=== PATIENT | female | born 1940 | race Caucasian/White ===

== ENCOUNTER 2020-01-15 12:25 | Inpatient (IN) | payer MEDICARE, OTHER ==
[~2020-01-15] VITALS: Ht 154.9 cm; Wt 78.9 kg
[2020-01-15 13:21] LABS: BASOPHILS # (AUTO) 0.1 X10'3 (0-0.2); BASOPHILS % (AUTO) 0.9 % (0-1); EOSINOPHILS % (AUTO) 0.2 % (0-6); HEMATOCRIT 51.5 % (35.0-45.0); LYMPHOCYTES # (AUTO) 1.9 X10'3 (1.1-4.8); LYMPHOCYTES % (AUTO) 14.9 % (21-51); MEAN CORPUSCULAR HEMOGLOBIN 31.1 PG (27.0-31.0); MEAN CORPUSCULAR HGB CONC 34.9 g/dL (33.0-36.5); MEAN PLATELET VOLUME 7.3 FL (7.4-10.4); MONOCYTES # (AUTO) 0.7 X10'3 (0-0.9); MONOCYTES % (AUTO) 5.5 % (2-12); NEUTROPHILS # (AUTO) 10.2 X10'3 (1.8-7.7); NEUTROPHILS % (AUTO) 78.5 % (42-75); PLATELET COUNT 368 X10'3 (140-440); RED BLOOD COUNT 5.78 X10'6 (4.20-5.60); RED CELL DISTRIBUTION WIDTH 13.4 % (11.5-14.5)
[2020-01-15 13:27] LABS: ALANINE AMINOTRANSFERASE 17 U/L (12-78); ALBUMIN 3.6 G/DL (3.4-5.0); ALBUMIN/GLOBULIN RATIO 0.9 (1.1-1.5); ALKALINE PHOSPHATASE 65 IU/L (46-116); ANION GAP 7 (8-16); ASPARTATE AMINO TRANSFERASE 21 U/L (10-37); BILIRUBIN,TOTAL 1.1 MG/DL (0.1-1.0); BLOOD UREA NITROGEN 12 MG/DL (7-18); BUN/CREATININE RATIO 12.5 (6.6-38.0); CHLORIDE 92 MMOL/L (99-107); CREATININE 0.96 MG/DL (0.40-0.90); GLUCOSE 128 MG/DL (70-104); LIPASE 126 U/L (73-393); MAGNESIUM 1.3 MG/DL (1.5-2.4); POTASSIUM 3.4 MMOL/L (3.5-5.1); SODIUM 130 MMOL/L (135-145); TOTAL PROTEIN 7.7 G/DL (6.4-8.2); eGFR 56 ML/MIN
[2020-01-15] MEDS ORDERED: LISI-600 PO (13:34)
[2020-01-15] MEDS ORDERED: normal saline 1000ML IV soln IVB ONE (13:45)
[2020-01-15] MEDS ORDERED: morphine 4 MG/ML inj SYRINge IV ONE ×2 (14:25→18:30)
--- NOTE | 2020-01-15 14:58 | NUR ---
PT BP 180/[address] ADAN FOR PT TO TAKE HOME BP MEDICATION.
[2020-01-15 15:31] LABS: CLARITY,URINE SLIGHTLY CLOUDY (Clear); COLOR,URINE YELLOW (Yellow); GLUCOSE, URINE NEGATIVE (Neg); KETONES,URINE TRACE mg/dl (Neg); LEUKOCYTE ESTERASE ,URINE TRACE (Neg); NITRITES, URINE NEGATIVE (Neg); OCCULT BLOOD,URINE TRACE-INTACT (Neg); PROTEIN,URINE 100 mg/dl (Neg); UROBILINOGEN,URINE 0.2 E.U/dL (0.2-1.0)
[2020-01-15 15:45] LABS: UA COLLECTION TYPE VOIDED
[2020-01-15 15:46] LABS: BACTERIA,URINE 2+ /HPF (Neg); MUCUS STRANDS NONE SEEN /LPF (Neg); RBC,URINE 0-2 /HPF (0-2); RENAL CELLS, URINE FEW /HPF; SQUAMOUS EPITHELIAL CELL,UR MODERATE /LPF (FEW)
[2020-01-15] MEDS ORDERED: iohexol 350MG/ML 100ml bottle IV ONE (15:54)
--- NOTE | 2020-01-15 16:15 | NUR ---
PT TO CT
[2020-01-15] MEDS ORDERED: morphine 2 MG/ML inj. syringe IV PRN (17:25)
[2020-01-15] MEDS ORDERED: acetaminophen 325mg tablet PO PRN (17:25)
[2020-01-15] MEDS ORDERED: potassium Cl 20 mEq SR tablet PO PRN ×2 (17:25)
[2020-01-15] MEDS ORDERED: potassium CL 10mEq/100ml bag 100 ML IV PRN ×2 (17:25)
[2020-01-15] MEDS ORDERED: magnesium 4gm in 100ml NS 100 ML IV PRN (17:25)
[2020-01-15] MEDS ORDERED: magnesium Cl slow-release 64mg tablet PO PRN (17:25)
[2020-01-15] MEDS ORDERED: magnesium 2GM in 50ml NS 50 ML IV PRN (17:25)
[2020-01-15] MEDS ORDERED: mag hydrox/Alum hydrox/simeth 30ml oral suspension PO PRN (17:25)
[2020-01-15] MEDS ORDERED: ondansetron/PF 4mg/2ml inj IV ONE (17:40)
[2020-01-15] MEDS: K and/or MAG REPLACEMENT MC SCH (17:54)
[2020-01-15] MEDS ORDERED: proCHLORperazine 10 MG/2 ml inj IV ONE (18:30)
[2020-01-15] MEDS ORDERED: nitroGLYCERIN 0.4mg SUBLingual tab SL ONE (19:48)
[2020-01-15] MEDS ORDERED: morphine 10mg/ml inj. IV PRN (19:55)
[2020-01-15] MEDS: docusate sod 100mg capsule PO SCH (20:00)
[2020-01-15] MEDS: normal saline 1000ml 1,000 ML IV SCH (20:04)
[2020-01-15] MEDS ORDERED: LISI1TAB28 PO (20:19)
[2020-01-15] MEDS: heparin, porcine 5000 units/ml vial SQ SCH (20:23)
[2020-01-15] MEDS ORDERED: nitroGLYCERIN 0.2mg/hour patch TD ONE (21:40)
[2020-01-15] MEDS: CefTRIAXone/D5W-Rocephin 1gm 50 ML IV SCH (23:19)
[2020-01-15] MEDS: pantoprazole 40 MG vial IV SCH (23:20)
[2020-01-16] VITALS: BP 166/83
[2020-01-16 05:34] VITALS: BP 181/77
[2020-01-16] MEDS: normal saline 1000ml 1,000 ML IV SCH ×3 (05:49→19:40)
[2020-01-16 05:53] LABS: BASOPHILS % (AUTO) 0.3 % (0-1); EOSINOPHILS # (AUTO) 0.1 X10'3 (0-0.9); EOSINOPHILS % (AUTO) 1.1 % (0-6); HEMATOCRIT 45.7 % (35.0-45.0); HEMOGLOBIN 15.8 g/dl (12.0-16.0); LYMPHOCYTES # (AUTO) 2.3 X10'3 (1.1-4.8); LYMPHOCYTES % (AUTO) 20.4 % (21-51); MEAN CORPUSCULAR HEMOGLOBIN 31.2 PG (27.0-31.0); MEAN CORPUSCULAR HGB CONC 34.5 g/dL (33.0-36.5); MEAN CORPUSCULAR VOLUME 90.3 FL (78-98); MEAN PLATELET VOLUME 7.2 FL (7.4-10.4); MONOCYTES # (AUTO) 0.9 X10'3 (0-0.9); NEUTROPHILS # (AUTO) 7.8 X10'3 (1.8-7.7); NEUTROPHILS % (AUTO) 70.2 % (42-75); PLATELET COUNT 287 X10'3 (140-440); RED BLOOD COUNT 5.05 X10'6 (4.20-5.60); RED CELL DISTRIBUTION WIDTH 13.5 % (11.5-14.5); WHITE BLOOD COUNT 11.2 X10'3 (4.5-11.0)
[2020-01-16 06:12] LABS: ALBUMIN 2.8 G/DL (3.4-5.0); ANION GAP 7 (8-16); BLOOD UREA NITROGEN 8 MG/DL (7-18); CALCIUM 8.4 MG/DL (8.5-10.1); CHLORIDE 99 MMOL/L (99-107); CREATININE 0.73 MG/DL (0.40-0.90); GLUCOSE 93 MG/DL (70-104); MAGNESIUM 1.4 MG/DL (1.5-2.4); SODIUM 135 MMOL/L (135-145); TOTAL CARBON DIOXIDE 28.9 MMOL/L (24-32); TROPONIN I 0.04 NG/ML (0.0-0.05); eGFR 77 ML/MIN
[2020-01-16 06:16] LABS: POTASSIUM 2.8 MMOL/L (3.5-5.1)
--- NOTE | 2020-01-16 06:59 | NUR ---
Patient in room [facility]. I have received report from REKHA SALAZAR and had the opportunity to ask questions and assume patient care.
--- NOTE | 2020-01-16 07:06 | NUR ---
Problems reprioritized. Patient report given, questions answered & plan of care reviewed with ALVINO. Addendum: 01/16/20 at 0706 by Livan Solo RN Amended: Links added.
[2020-01-16] MEDS: pantoprazole 40 MG vial IV SCH (07:19)
[2020-01-16] MEDS: heparin, porcine 5000 units/ml vial SQ SCH ×2 (08:00→20:00)
[2020-01-16] MEDS: K and/or MAG REPLACEMENT MC SCH ×2 (08:00→20:00)
[2020-01-16] MEDS: docusate sod 100mg capsule PO SCH ×2 (08:00→20:00)
[2020-01-16] MEDS ORDERED: NORMAL SALINE IV PRN ×2 (08:25→08:29)
[2020-01-16] MEDS ORDERED: SINCALIDE IV PRN ×2 (08:25→08:29)
--- NOTE | 2020-01-16 10:24 | NUR ---
PT DOWN TO [facility] FOR PROCEDURE.
[2020-01-16 10:25] VITALS: BP 145/76
--- NOTE | 2020-01-16 12:44 | NUR ---
Pt has returned to room 359B from [facility], A&Ox4, in no apparent distress.
[2020-01-16] MEDS ORDERED: regadenoson 0.4mg/5ml syringe IV PRN (13:35)
[2020-01-16] MEDS ORDERED: metoprolol tartrate 1mg/ml inj IV PRN (13:35)
[2020-01-16] MEDS ORDERED: nitroGLYCERIN 0.4mg SUBLingual tab SL PRN (13:35)
[2020-01-16] MEDS ORDERED: aminophylline 250mg/10ml inj. IV PRN (13:35)
--- NOTE | 2020-01-16 14:01 | NUR ---
Per nuc med, pt unable to have Elis scan today due to HIDA scan earlier. BP is 161/56, HR is 75. Notified Dr. Mcnair and asked for diet orders.
[2020-01-16 15:18] VITALS: BP 161/56
--- NOTE | 2020-01-16 17:49 | NUR ---
Dr Mcnair paged regarding patient's BP: please address med rec. She takes BP med but has not taken since yesterday. Her BP's since being here has been 166/83, 181/77, 145/76, 161/56- thank you- liseth [phone]
--- NOTE | 2020-01-16 18:24 | NUR ---
Problems reprioritized. Patient report given, questions answered & plan of care reviewed with REKHA Carmen.
[2020-01-16] MEDS: CefTRIAXone/D5W-Rocephin 1gm 50 ML IV SCH (22:14)
[2020-01-17] VITALS (12 sets, daily range): BP systolic 124–189; BP diastolic 52–75
[2020-01-17 06:08] LABS: BASOPHILS % (AUTO) 0.5 % (0-1); EOSINOPHILS # (AUTO) 0.3 X10'3 (0-0.9); EOSINOPHILS % (AUTO) 3.9 % (0-6); HEMATOCRIT 42.8 % (35.0-45.0); HEMOGLOBIN 14.8 g/dl (12.0-16.0); LYMPHOCYTES # (AUTO) 1.7 X10'3 (1.1-4.8); LYMPHOCYTES % (AUTO) 21.8 % (21-51); MEAN CORPUSCULAR HEMOGLOBIN 31.5 PG (27.0-31.0); MEAN CORPUSCULAR HGB CONC 34.6 g/dL (33.0-36.5); MEAN CORPUSCULAR VOLUME 91.2 FL (78-98); MEAN PLATELET VOLUME 7.2 FL (7.4-10.4); MONOCYTES # (AUTO) 0.7 X10'3 (0-0.9); MONOCYTES % (AUTO) 8.8 % (2-12); NEUTROPHILS # (AUTO) 5.1 X10'3 (1.8-7.7); PLATELET COUNT 235 X10'3 (140-440); RED CELL DISTRIBUTION WIDTH 13.3 % (11.5-14.5); WHITE BLOOD COUNT 7.8 X10'3 (4.5-11.0)
[2020-01-17 06:17] LABS: ALBUMIN 2.6 G/DL (3.4-5.0); ANION GAP 3 (8-16); BLOOD UREA NITROGEN 13 MG/DL (7-18); BUN/CREATININE RATIO 14.9 (6.6-38.0); CALCIUM 8.1 MG/DL (8.5-10.1); CHLORIDE 108 MMOL/L (99-107); CREATININE 0.87 MG/DL (0.40-0.90); GLUCOSE 86 MG/DL (70-104); MAGNESIUM 2.3 MG/DL (1.5-2.4); POTASSIUM 4.2 MMOL/L (3.5-5.1); SODIUM 140 MMOL/L (135-145); TOTAL CARBON DIOXIDE 29.1 MMOL/L (24-32); eGFR 62 ML/MIN
--- NOTE | 2020-01-17 06:22 | NUR ---
Patient in room [facility]. I have received report from REKHA SALAZAR and had the opportunity to ask questions and assume patient care.
--- NOTE | 2020-01-17 06:33 | NUR ---
Problems reprioritized. Patient report given, questions answered & plan of care reviewed with ALVINO. Addendum: 01/17/20 at 0634 by Livan Solo RN Amended: Links added.
[2020-01-17] MEDS: normal saline 1000ml 1,000 ML IV SCH (06:56)
[2020-01-17] MEDS: heparin, porcine 5000 units/ml vial SQ SCH (07:01)
[2020-01-17] MEDS: docusate sod 100mg capsule PO SCH (07:01)
[2020-01-17] MEDS: pantoprazole 40 MG vial IV SCH (07:01)
[2020-01-17] MEDS: K and/or MAG REPLACEMENT MC SCH (07:02)
--- NOTE | 2020-01-17 08:39 | NUR ---
PATIENT DOWN TO [facility] FOR STRESS TEST VIA WHEELCHAIR ACCOMPANIED BY [facility] STAFF.
--- NOTE | 2020-01-17 10:36 | NUR ---
patient returned back to room 359b via wheelchair accompanied by x1 staff. daughter is at bedside.
[2020-01-17] MEDS ORDERED: LISI1TAB28 PO (10:52)
[2020-01-17] MEDS ORDERED: cloNIDine 0.1 mg tablet PO ONE (11:00)
--- NOTE | 2020-01-17 11:14 | NUR ---
Dr. Armstrong in to see patient and is aware patient's BP is 209/106. Clonidine ordered. Will administer as ordered and continue to monitor.
[2020-01-17] MEDS ORDERED: lisinopril 20mg tablet PO SCH (12:33)
[2020-01-17] MEDS ORDERED: HYDROchlorothiazide 12.5mg capsule PO SCH (12:34)
[2020-01-17] MEDS ORDERED: ASPI-611 PO (13:00)
[2020-01-17] MEDS ORDERED: CARV3.12 PO (13:00)
[2020-01-17] MEDS ORDERED: PANT40TA4 PO (13:00)
[2020-01-17] MEDS ORDERED: DOCU100C40 PO (13:00)
[2020-01-17] MEDS ORDERED: NITR0.4T51 SL (13:00)
[2020-01-17] MEDS ORDERED: CEFD300C3 PO (13:03)
--- NOTE | 2020-01-17 13:39 | NUR ---
Patient has denied chest pain this shift but while sitting up on side of bed and eating lunch, patient c/o feeling chest heaviness and pain "like my food is just sitting right here and not moving," while gesturing with her hands from medial upper chest to throat. Maalox was administered which patient stated was effective and no longer having upper chest pain and is now sitting up at bedside eating again with no complaints. Pt had received clonididine, lisinopril/hctz as ordered BP now is 165/87 HR 69, 93% RA. Dr Armstrong notified.
--- NOTE | 2020-01-17 15:36 | NUR ---
Patient BP now 139/62 hr 61 patient has denies chest pain or discomfort. no complaints.
--- NOTE | 2020-01-17 16:44 | NUR ---
Discussed with patient and her daughter discharge instructions and new meds. All questions answered and patient and daughter verbalize understanding of discharge instructions. Patient was alert and oriented in no apparent and no complaints. Discharged with all personal belongings.
[2020-01-17] MEDS ORDERED: lactobacillus rhamnosus 10,000 MMU CELLS/CAPSULE PO SCH (20:00)
== END 2020-01-17 16:35 | disposition home or self-care (01) | DRG 445 ==
LOC: ER 12:27 → ED HOLD 17:22 → EDBEDREQ 19:06 → SUR 3N 19:33 → OBSVTOIN 01-16 14:00
PROVIDERS: ADMIT Internal Medicine; ATTEND Internal Medicine
DX: K80.20 Calculus of gallbladder without cholecystitis without obstruction (principal); E87.1 Hypo-osmolality and hyponatremia; J44.1 Chronic obstructive pulmonary disease with (acute) exacerbation; I10 Essential (primary) hypertension; E87.6 Hypokalemia; E86.0 Dehydration; Z88.1 Allergy status to other antibiotic agents; Z85.3 Personal history of malignant neoplasm of breast; Z90.11 Acquired absence of right breast and nipple; D75.1 Secondary polycythemia; R09.02 Hypoxemia; Z87.442 Personal history of urinary calculi; Z87.891 Personal history of nicotine dependence
CPT/HCPCS: 36415; 71045; 71275; 76700; 78226; 78452; 80048; 80053; 81001; 83690; 83735; 84145; 84484; 85025; 87081; 87088; 93005; 93017; 96365; 96366; 96375; 96376; 99285; A9500; A9537; C9113; G0378; J0696; J0780; J1644; J2270; J2405; J2785; J3475; J3480; J7030; Q9967